=== PATIENT | male | born 1990 | race Caucasian/White ===

== ENCOUNTER 2020-05-28 09:53 | Emergency (ER) | payer SELFPAY ==
[~2020-05-28] VITALS: Ht 188 cm; Wt 79.4 kg
--- NOTE | 2020-05-28 10:00 | NUR ---
ED Nurse Note: Pt ambulated to ED from home d/t L middle finger lac noted with mild profuse bleeding, pressure on. Pt is AOx4, VSS, on RA, afebrile on triage. Per pt injury happened an hour ago.
[2020-05-28 10:02] VITALS: BP 130/83
--- NOTE | 2020-05-28 10:07 | Emergency Room Report ---
History of Present Illness General Chief Complaint: Laceration Source: Patient Present Illness HPI Disclaimer: Please note that this report is being documented using DRAGON technology. This can lead to erroneous entry secondary to incorrect interpretation by the dictating instrument. HPI: 29-year-old [id number] male presents for evaluation of laceration. 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 Occurred approximately 2 hours ago. Applied tourniquet and stop bleeding. Tetanus up-to-date within the last year. No other injury sustained. Denies history of prior instrumentation or surgical repair to that digit. Able to fully flex and extend. States he maintains sensation of the distal pad. Does not involve the fingernail. PMH: Denied PSH: Denied Allergies: Denied Social Hx: Denied drug or alcohol abuse Allergies: Coded Allergies: No Known Allergies (Unverified , 05/28/20) COVID-19 Screening Contact w/high risk pt: No Experienced COVID-19 symptoms?: No COVID-19 Testing performed MANAGER MEAT: No Nursing Documentation-PMH Past Medical History: No Stated History Review of Systems All Other Systems: negative except mentioned in HPI Physical Exam Vital Signs Date Time Temp Pulse Resp B/P (MAP) Pulse Ox O2 Delivery O2 Flow Rate FiO2 05/28/20 09:56 98.1 91 17 130/83 (99) 99 Room Air General: Awake and alert, no acute distress HEENT: NC/AT. EOMI. Resp: Normal work of breathing Skin: 1.5 cm laceration over the radial aspect and ventral aspect of the distal pad left middle finger. Capillary refill intact. MSK: Normal tone and bulk. Moving all extremities. No obvious deformity. Able to flex and extend all digits. No anatomic snuffbox tenderness. Full range of motion at the wrist. Neuro: Awake and alert. Mentating appropriately. Sensation intact to light touch over the radial ulnar portion of the distal pad. Procedures Laceration/Wound Repair Laceration/Wound Repair : Consent: Verbal Wound Location: upper extremity Wound's Depth, Shape: superficial, linear Wound Length (cm): 2 Wound Explored: clean Irrigated w/ Saline (ccs): 1000 Betadine Prep?: Yes Anesthesia: 1% Lidocaine Wound Debrided: None Wound Repaired With: sutures, Dermabond Suture Size/Type: 4:0, proline Number of Sutures: 6 Sterile Dressing Applied?: Yes Patient Tolerated: Well Complications: None Medical Decision Making Diagnostic Impression: Primary Impression: Finger laceration ER Course 21-year-old male presents for evaluation of laceration to the left middle finger from a table saw. Tetanus up-to-date. Hand was thoroughly scrubbed and digital block was performed using 1% lidocaine. Wound was irrigated under pressure, cleaned and sutured and had Dermabond applied over macerated skin near the nailbed that could not be closed with sutures. See separate procedure section of this note for full details. Tolerated well. No complications. Will follow up for suture removal in 1 week. Discussed reasons to return to the ER. He understands and agrees with this treatment plan. Last Vital Signs Date Time Temp Pulse Resp B/P (MAP) Pulse Ox O2 Delivery O2 Flow Rate FiO2 05/28/20 10:02 98.1 17 130/83 99 Room Air 05/28/20 09:56 91 Disposition: HOME, SELF-CARE Condition: Stable Scripts Cephalexin* (KEFLEX*) 500 Mg Capsule 500 MG ORAL EVERY 12 HOURS, #14 CAP 0 Refills Prov: Mohamud Gonzalez MD 05/28/20 Mohamud Gonzalez MD May 28, 2020 10:07
[2020-05-28] MEDS ORDERED: Lidocaine 1% Plain 30 ml INJ ONE (10:15)
--- NOTE | 2020-05-28 10:35 | NUR ---
ED Nurse Note: ERMD at bedside.
[2020-05-28] MEDS ORDERED: CEPHALEXIN500 MG ORAL (11:11)
[2020-05-28 11:42] VITALS: BP 135/84
--- NOTE | 2020-05-28 11:42 | NUR ---
ER DISCHARGE NOTE: Patient is cleared to be discharged per ERMD, pt is aox4, on room air, with stable vital signs. pt was given dc and prescription instructions, pt was able to verbalize understanding, pt id band removed. pt is able to ambulate with steady gait. pt took all belongings.
== END 2020-05-28 11:42 | disposition home or self-care (01) ==
LOC: EMR 10:11
DX: S61.213A Laceration without foreign body of left middle finger without damage to nail, initial encounter (principal); W29.8XXA Contact with other powered hand tools and household machinery, initial encounter; Y93.89 Activity, other specified; Y92.9 Unspecified place or not applicable
CPT/HCPCS: 12001; 99282; J2001